=== PATIENT | male | born 1950 | race Two or more races ===

== ENCOUNTER 2019-11-20 09:45 | Emergency (ER) | payer MEDICARE, MEDICAID ==
[~2019-11-20] VITALS: Ht 172.7 cm; Wt 76.0 kg
[~2019-11-20 09:45] MED LIST: ASPI-611 PO; ATOR40TA72 PO
[2019-11-20 10:26] LABS: BASOPHILS % (AUTO) 0.6 % (0-1); EOSINOPHILS # (AUTO) 0.2 X10'3 (0-0.9); EOSINOPHILS % (AUTO) 2.7 % (0-6); HEMATOCRIT 35.9 % (42.0-52.0); HEMOGLOBIN 12.1 g/dl (14.0-17.9); LYMPHOCYTES # (AUTO) 1.3 X10'3 (1.1-4.8); MEAN CORPUSCULAR HEMOGLOBIN 29.5 PG (27.0-31.0); MEAN CORPUSCULAR HGB CONC 33.7 g/dL (33.0-36.5); MEAN CORPUSCULAR VOLUME 87.7 FL (78-98); MONOCYTES # (AUTO) 0.7 X10'3 (0-0.9); MONOCYTES % (AUTO) 10.6 % (2-12); NEUTROPHILS # (AUTO) 3.9 X10'3 (1.8-7.7); NEUTROPHILS % (AUTO) 64.1 % (42-75); PLATELET COUNT 230 X10'3 (140-440); RED BLOOD COUNT 4.09 X10'6 (4.70-6.10); RED CELL DISTRIBUTION WIDTH 14.7 % (11.5-14.5); WHITE BLOOD COUNT 6.1 X10'3 (4.5-11.0)
[2019-11-20 10:33] LABS: PARTIAL THROMBOPLASTIN TIME 29 SECONDS (22-32)
[2019-11-20 10:37] LABS: ALANINE AMINOTRANSFERASE 56 U/L (12-78); ALBUMIN 3.4 G/DL (3.4-5.0); ALBUMIN/GLOBULIN RATIO 0.7 (1.1-1.5); ALKALINE PHOSPHATASE 181 IU/L (46-116); ANION GAP 10 (8-16); ASPARTATE AMINO TRANSFERASE 33 U/L (10-37); BILIRUBIN,TOTAL 0.7 MG/DL (0.1-1.0); BLOOD UREA NITROGEN 21 MG/DL (7-18); BUN/CREATININE RATIO 17.5 (5.4-32.0); CALCIUM 9.7 MG/DL (8.5-10.1); CHLORIDE 101 MMOL/L (99-107); GLUCOSE 252 MG/DL (70-104); POTASSIUM 4.1 MMOL/L (3.5-5.1); SODIUM 135 MMOL/L (135-145); TOTAL CARBON DIOXIDE 24.2 MMOL/L (24-32); TOTAL PROTEIN 8.6 G/DL (6.4-8.2); eGFR 60 ML/MIN
[2019-11-20 10:54] LABS: MAGNESIUM 1.9 MG/DL (1.5-2.4)
[2019-11-20 11:23] VITALS: BP 124/80
== END 2019-11-20 11:26 | disposition home or self-care (01) ==
LOC: ER 09:45
DX: R22.1 Localized swelling, mass and lump, neck (principal); E11.9 Type 2 diabetes mellitus without complications; F17.200 Nicotine dependence, unspecified, uncomplicated; Z72.89 Other problems related to lifestyle; Z98.890 Other specified postprocedural states; Z86.73 Personal history of transient ischemic attack (TIA), and cerebral infarction without residual deficits; Z79.82 Long term (current) use of aspirin; Z79.899 Other long term (current) drug therapy
CPT/HCPCS: 36415; 71045; 80053; 83735; 83880; 84443; 85025; 85610; 85730; 87502; 87503; 93005; 99285

== ENCOUNTER 2020-06-26 11:05 | Outpatient (CLI) | payer MEDICARE, MEDICAID ==
[~2020-06-26 11:05] MED LIST changes: +ALLO300T8 PO; -ASPI-611 PO; +FERR325T28 PO; +MECO10005 PO; +METF500T PO; +METO-395 PO
== END 2020-06-26 23:59 | disposition home or self-care (01) ==
LOC: RAD 11:05
DX: C81.99 Hodgkin lymphoma, unspecified, extranodal and solid organ sites (principal); R55 Syncope and collapse
CPT/HCPCS: 95819

== ENCOUNTER 2022-01-06 08:28 | Day surgery (SDC) | payer MEDICAID, MEDICARE ==
[2021-12-30 10:28] LABS: BASOPHILS % (AUTO) 0.6 % (0-1); EOSINOPHILS # (AUTO) 0.1 X10'3 (0-0.9); HEMATOCRIT 36.1 % (42.0-52.0); HEMOGLOBIN 12.5 g/dl (14.0-17.9); LYMPHOCYTES % (AUTO) 37.7 % (21-51); MEAN CORPUSCULAR HEMOGLOBIN 33.9 PG (27.0-31.0); MEAN CORPUSCULAR HGB CONC 34.5 g/dL (33.0-36.5); MEAN CORPUSCULAR VOLUME 98.3 FL (78-98); MEAN PLATELET VOLUME 7.7 FL (7.4-10.4); MONOCYTES # (AUTO) 0.3 X10'3 (0-0.9); MONOCYTES % (AUTO) 6.1 % (2-12); NEUTROPHILS # (AUTO) 2.9 X10'3 (1.8-7.7); NEUTROPHILS % (AUTO) 53.6 % (42-75); PLATELET COUNT 186 X10'3 (140-440); RED BLOOD COUNT 3.68 X10'6 (4.70-6.10); RED CELL DISTRIBUTION WIDTH 13.3 % (11.5-14.5); WHITE BLOOD COUNT 5.3 X10'3 (4.5-11.0)
[2021-12-30 10:40] LABS: APTT 27 SECONDS (22-32)
[2021-12-30 11:02] LABS: ALANINE AMINOTRANSFERASE 26 U/L (12-78); ALBUMIN 3.9 G/DL (3.4-5.0); ALBUMIN/GLOBULIN RATIO 1.1 (1.1-1.5); ALKALINE PHOSPHATASE 120 IU/L (46-116); ANION GAP 12 (8-16); ASPARTATE AMINO TRANSFERASE 15 U/L (10-37); BILIRUBIN,TOTAL 0.5 MG/DL (0.1-1.0); BLOOD UREA NITROGEN 19 MG/DL (7-18); BUN/CREATININE RATIO 18.1 (5.4-32.0); CALCIUM 9.1 MG/DL (8.5-10.1); CHLORIDE 102 MMOL/L (99-107); CREATININE 1.05 MG/DL (0.60-1.10); GLUCOSE 158 MG/DL (70-104); POTASSIUM 4.3 MMOL/L (3.5-5.1); SODIUM 141 MMOL/L (135-145); TOTAL CARBON DIOXIDE 27.3 MMOL/L (24-32); TOTAL PROTEIN 7.3 G/DL (6.4-8.2); eGFR 70 ML/MIN
[2022-01-06] VITALS (12 sets, daily range): BP systolic 112–145; BP diastolic 68–90
[~2022-01-06] VITALS: Ht 172.7 cm; Wt 85.2 kg
[2022-01-06] MEDS ORDERED: nitroGLYCERIN 0.4mg SUBLingual tab SL PRN ×2 (08:40→13:05)
[2022-01-06] MEDS ORDERED: normal saline 1,000 ML IV SCH (08:45)
[2022-01-06] MEDS ORDERED: diphenhydrAMINE 25mg capsule PO PRN (08:45)
[2022-01-06] MEDS ORDERED: LORazepam 0.5 MG tablet PO PRN (08:45)
[2022-01-06] MEDS ORDERED: PREG50CA PO (08:50)
[2022-01-06] MEDS ORDERED: insulin Lispro (HumaLOG) vial - multi-dose SQ SCH (08:50)
[2022-01-06] MEDS ORDERED: MESSAGE TO PHARMACY PO ONE (08:50)
[2022-01-06] MEDS ORDERED: FINA5TAB11 PO (08:50)
[2022-01-06] MEDS ORDERED: dextrose 50%-water 50ml dispensing syringe IV PRN ×2 (08:50)
[2022-01-06] MEDS ORDERED: glucagon, human recombinant 1mg kit SUBCUT PRN (08:50)
[2022-01-06] MEDS ORDERED: METF-900 PO (08:50)
[2022-01-06] MEDS ORDERED: DEXTROSE 15 GM of carb/4 tabs (each vial/BOTTLE has 4 tablets) PO PRN ×2 (08:50)
[2022-01-06] MEDS ORDERED: LIDOCAINE 1% w/preservative (10 MG/ML) inj. 10mL VIAL ONE (11:34)
[2022-01-06] MEDS ORDERED: midazolam 1 mg/ML 2ml injection ONE ×2 (11:35→12:05)
[2022-01-06] MEDS ORDERED: fentaNYL/PF 50MCG/1 ML 2ML syringe ONE (11:35)
[2022-01-06] MEDS ORDERED: iohexol 350 MG/ML 50ML vial IV ONE (11:35)
[2022-01-06] MEDS ORDERED: iohexol 350MG/ML 100ml bottle IV ONE (11:35)
[2022-01-06] MEDS ORDERED: normal saline 1000ml 1,000 ML IV SCH (13:00)
[2022-01-06] MEDS ORDERED: ondansetron/PF 4mg/2ml inj IV PRN (13:00)
[2022-01-06] MEDS ORDERED: HYDROcodone/acetaminophen 10/325mg tab PO PRN (13:05)
[2022-01-06] MEDS ORDERED: proCHLORperazine 10 MG/2 ml inj IV PRN (13:05)
[2022-01-06] MEDS ORDERED: HYDROcodone/acetaminophen 5mg/325mg tablet PO PRN (13:05)
[2022-01-06] MEDS ORDERED: OXAZEpam 15mg capsule PO PRN (13:05)
[2022-01-06] MEDS ORDERED: insulin glargine (Lantus) pen - multi-dose SQ SCH (21:00)
== END 2022-01-06 19:35 | disposition home or self-care (01) ==
LOC: SSTAY O 08:28
PROVIDERS: ATTEND Internal Medicine Cardiovascular Disease
DX: R94.39 Abnormal result of other cardiovascular function study (principal); I25.10 Atherosclerotic heart disease of native coronary artery without angina pectoris; E11.40 Type 2 diabetes mellitus with diabetic neuropathy, unspecified; I65.21 Occlusion and stenosis of right carotid artery; N40.0 Benign prostatic hyperplasia without lower urinary tract symptoms; I25.2 Old myocardial infarction; Z98.890 Other specified postprocedural states; Z85.72 Personal history of non-Hodgkin lymphomas; Z79.84 Long term (current) use of oral hypoglycemic drugs; Z79.899 Other long term (current) drug therapy; Z87.891 Personal history of nicotine dependence; Z79.01 Long term (current) use of anticoagulants
CPT/HCPCS: 36415; 71046; 80053; 82948; 83036; 85025; 85610; 85730; 93005; 93458; 99152; 99153; C1760; C1769; J1644; J2250; J3010; J7030; Q0163; Q9967; A6258; J1815

== ENCOUNTER 2022-01-18 22:15 | Emergency (ER) | payer MEDICARE, MEDICAID ==
[~2022-01-18] VITALS: Ht 172.7 cm; Wt 83.6 kg
[~2022-01-18 22:15] MED LIST changes: -ALLO300T8 PO; -FERR325T28 PO; +FINA5TAB11 PO; -MECO10005 PO; +METF-900 PO; -METF500T PO; -METO-395 PO; +PREG50CA PO
[2022-01-18 22:53] LABS: BASOPHILS % (AUTO) 0.4 % (0-1); EOSINOPHILS # (AUTO) 0.1 X10'3 (0-0.9); EOSINOPHILS % (AUTO) 0.9 % (0-6); HEMATOCRIT 35.2 % (42.0-52.0); HEMOGLOBIN 12.3 g/dl (14.0-17.9); LYMPHOCYTES # (AUTO) 1.7 X10'3 (1.1-4.8); LYMPHOCYTES % (AUTO) 25.9 % (21-51); MEAN CORPUSCULAR HEMOGLOBIN 33.7 PG (27.0-31.0); MEAN CORPUSCULAR HGB CONC 34.9 g/dL (33.0-36.5); MEAN CORPUSCULAR VOLUME 96.6 FL (78-98); MEAN PLATELET VOLUME 7.8 FL (7.4-10.4); MONOCYTES # (AUTO) 0.4 X10'3 (0-0.9); MONOCYTES % (AUTO) 5.6 % (2-12); NEUTROPHILS # (AUTO) 4.4 X10'3 (1.8-7.7); NEUTROPHILS % (AUTO) 67.2 % (42-75); PLATELET COUNT 170 X10'3 (140-440); RED BLOOD COUNT 3.64 X10'6 (4.70-6.10); RED CELL DISTRIBUTION WIDTH 13.4 % (11.5-14.5); WHITE BLOOD COUNT 6.5 X10'3 (4.5-11.0)
[2022-01-18 23:07] LABS: ALANINE AMINOTRANSFERASE 24 U/L (12-78); ALBUMIN 4.1 G/DL (3.4-5.0); ALBUMIN/GLOBULIN RATIO 1.2 (1.1-1.5); ALKALINE PHOSPHATASE 110 IU/L (46-116); ANION GAP 6 (8-16); ASPARTATE AMINO TRANSFERASE 13 U/L (10-37); BILIRUBIN,TOTAL 0.4 MG/DL (0.1-1.0); BLOOD UREA NITROGEN 17 MG/DL (7-18); BUN/CREATININE RATIO 15.6 (5.4-32.0); CALCIUM 8.9 MG/DL (8.5-10.1); CHLORIDE 103 MMOL/L (99-107); CREATININE 1.09 MG/DL (0.60-1.10); GLUCOSE 286 MG/DL (70-104); POTASSIUM 3.7 MMOL/L (3.5-5.1); SODIUM 137 MMOL/L (135-145); TOTAL PROTEIN 7.5 G/DL (6.4-8.2); eGFR 67 ML/MIN
[2022-01-19 00:41] LABS: CLARITY,URINE CLEAR (Clear); GLUCOSE, URINE >=1000 mg/dl (Neg); KETONES,URINE NEGATIVE (Neg); LEUKOCYTE ESTERASE ,URINE NEGATIVE (Neg); NITRITES, URINE NEGATIVE (Neg); OCCULT BLOOD,URINE NEGATIVE (Neg); PH,URINE 7.5 (4.8-8.0); PROTEIN,URINE NEGATIVE (Neg); UROBILINOGEN,URINE 0.2 E.U/dL (0.2-1.0)
[2022-01-19 00:46] LABS: COLOR,URINE STRAW (Yellow); UA COLLECTION TYPE URINAL
[2022-01-19 00:55] LABS: BACTERIA,URINE NONE SEEN /HPF (Neg); RBC,URINE 0-2 /HPF (0-2); WBC,URINE 0-4 /HPF (0-4)
[2022-01-19 00:56] LABS: SQUAMOUS EPITHELIAL CELL,UR NONE SEEN /LPF (FEW)
[2022-01-19] MEDS ORDERED: insulin regular, human 10 units/0.1 ml syringe SQ ONE (01:15)
--- NOTE | 2022-01-19 01:31 | NUR ---
SPOKE TO DR SLAUGHTER PT'S BG IS 135. GIVEN VERBAL ORDER TO NOT GIVE INSULIN.
[2022-01-19 01:38] VITALS: BP 164/97
== END 2022-01-19 01:39 | disposition home or self-care (01) ==
LOC: ER 22:16
DX: E11.65 Type 2 diabetes mellitus with hyperglycemia (principal); E78.00 Pure hypercholesterolemia, unspecified; I11.9 Hypertensive heart disease without heart failure; Z79.899 Other long term (current) drug therapy
CPT/HCPCS: 36415; 71045; 80053; 81001; 82948; 83880; 84484; 85025; 93005; 99285

== ENCOUNTER 2022-05-07 20:55 | Emergency (ER) | payer MEDICARE, MEDICAID ==
[~2022-05-07] VITALS: Ht 172.7 cm; Wt 80.0 kg
[~2022-05-07 20:55] MED LIST changes: +ASPI-1071 PO; +HYDR-3972 PO; +LOP25T PO; +METF-436 PO; -METF-900 PO
[2022-05-07 21:08] VITALS: BP 168/87
[2022-05-07 21:31] LABS: BASOPHILS % (AUTO) 0.4 % (0-1); EOSINOPHILS # (AUTO) 0.1 X10'3 (0-0.9); EOSINOPHILS % (AUTO) 1.8 % (0-6); HEMATOCRIT 35.7 % (42.0-52.0); HEMOGLOBIN 12.3 g/dl (14.0-17.9); LYMPHOCYTES # (AUTO) 2.2 X10'3 (1.1-4.8); LYMPHOCYTES % (AUTO) 33.2 % (21-51); MEAN CORPUSCULAR HEMOGLOBIN 32.3 PG (27.0-31.0); MEAN CORPUSCULAR HGB CONC 34.6 g/dL (33.0-36.5); MEAN CORPUSCULAR VOLUME 93.5 FL (78-98); MEAN PLATELET VOLUME 7.8 FL (7.4-10.4); MONOCYTES # (AUTO) 0.4 X10'3 (0-0.9); MONOCYTES % (AUTO) 6.2 % (2-12); NEUTROPHILS # (AUTO) 3.8 X10'3 (1.8-7.7); NEUTROPHILS % (AUTO) 58.4 % (42-75); PLATELET COUNT 192 X10'3 (140-440); RED BLOOD COUNT 3.81 X10'6 (4.70-6.10); RED CELL DISTRIBUTION WIDTH 14.2 % (11.5-14.5); WHITE BLOOD COUNT 6.6 X10'3 (4.5-11.0)
[2022-05-07 21:50] LABS: ALANINE AMINOTRANSFERASE 24 U/L (12-78); ALBUMIN 4.4 G/DL (3.4-5.0); ALBUMIN/GLOBULIN RATIO 1.2 (1.1-1.5); ALKALINE PHOSPHATASE 91 IU/L (46-116); ANION GAP 12 (8-16); ASPARTATE AMINO TRANSFERASE 21 U/L (10-37); BILIRUBIN,TOTAL 0.4 MG/DL (0.1-1.0); BLOOD UREA NITROGEN 23 MG/DL (7-18); BUN/CREATININE RATIO 21.1 (5.4-32.0); CALCIUM 8.9 MG/DL (8.5-10.1); CHLORIDE 105 MMOL/L (99-107); CREATININE 1.09 MG/DL (0.60-1.10); GLUCOSE 187 MG/DL (70-104); POTASSIUM 4.3 MMOL/L (3.5-5.1); SODIUM 144 MMOL/L (135-145); TOTAL CARBON DIOXIDE 27.1 MMOL/L (24-32); eGFR 67 ML/MIN
== END 2022-05-08 06:15 | disposition left against medical advice (07) ==
LOC: ER 20:56
DX: R42 Dizziness and giddiness (principal); Z53.21 Procedure and treatment not carried out due to patient leaving prior to being seen by health care provider
CPT/HCPCS: 36415; 71045; 80053; 83880; 84484; 85025; 93005

== ENCOUNTER 2022-12-01 10:53 | Day surgery (SDC) | payer MEDICARE, MEDICAID ==
[~2022-12-01] VITALS: Ht 172.7 cm; Wt 86.0 kg
[2022-12-01 11:12] VITALS: BP 124/85
[2022-12-01 11:40] VITALS: BP 124/85
== END 2022-12-01 11:55 | disposition home or self-care (01) ==
LOC: SSTAY O 10:53
PROVIDERS: ATTEND Radiology Vascular & Interventional Radiology
DX: Z45.2 Encounter for adjustment and management of vascular access device (principal); C81.28 Mixed cellularity Hodgkin lymphoma, lymph nodes of multiple sites; E11.9 Type 2 diabetes mellitus without complications; Z86.73 Personal history of transient ischemic attack (TIA), and cerebral infarction without residual deficits; Z79.84 Long term (current) use of oral hypoglycemic drugs; Z79.899 Other long term (current) drug therapy; Z98.890 Other specified postprocedural states; Z95.1 Presence of aortocoronary bypass graft
CPT/HCPCS: 36590; J7030

== ENCOUNTER 2023-10-25 14:33 | Emergency (ER) | payer MEDICAID ==
[~2023-10-25] VITALS: Ht 175.3 cm; Wt 102.3 kg
[~2023-10-25 14:33] MED LIST changes: -ASPI-1071 PO; -FINA5TAB11 PO; -HYDR-3972 PO; -LOP25T PO; -PREG50CA PO
[2023-10-25 15:10] LABS: BASOPHILS % (AUTO) 0.5 % (0-1); EOSINOPHILS # (AUTO) 0.1 X10'3 (0-0.9); HEMATOCRIT 39.8 % (42.0-52.0); HEMOGLOBIN 13.7 g/dl (14.0-17.9); LYMPHOCYTES # (AUTO) 1.7 X10'3 (1.1-4.8); LYMPHOCYTES % (AUTO) 25.3 % (21-51); MEAN CORPUSCULAR HEMOGLOBIN 33.4 PG (27.0-31.0); MEAN CORPUSCULAR HGB CONC 34.4 g/dL (33.0-36.5); MEAN CORPUSCULAR VOLUME 97.2 FL (78-98); MEAN PLATELET VOLUME 8.4 FL (7.4-10.4); MONOCYTES # (AUTO) 0.3 X10'3 (0-0.9); MONOCYTES % (AUTO) 5.2 % (2-12); NEUTROPHILS # (AUTO) 4.4 X10'3 (1.8-7.7); PLATELET COUNT 182 X10'3 (140-440); RED CELL DISTRIBUTION WIDTH 13.4 % (11.5-14.5); WHITE BLOOD COUNT 6.5 X10'3 (4.5-11.0)
[2023-10-25 15:15] LABS: ALANINE AMINOTRANSFERASE 22 U/L (12-78); ALBUMIN 4.1 G/DL (3.4-5.0); ALBUMIN/GLOBULIN RATIO 1.1 (1.1-1.5); ALKALINE PHOSPHATASE 82 IU/L (46-116); ANION GAP 6 (8-16); ASPARTATE AMINO TRANSFERASE 25 U/L (10-37); BILIRUBIN,TOTAL 0.5 MG/DL (0.1-1.0); BLOOD UREA NITROGEN 20 MG/DL (7-18); BUN/CREATININE RATIO 16.9 (10.0-20.0); CALCIUM 8.8 MG/DL (8.5-10.1); CHLORIDE 102 MMOL/L (99-107); CREATININE 1.18 MG/DL (0.60-1.10); POTASSIUM 3.8 MMOL/L (3.5-5.1); SODIUM 140 MMOL/L (135-145); TOTAL CARBON DIOXIDE 31.6 MMOL/L (24-32); eGFR 61 ML/MIN
[2023-10-25 15:22] LABS: PRO BRAIN NATRIURETIC PEPTIDE 146 PG/ML (0-125)
[2023-10-25 15:25] LABS: GLUCOSE 160 MG/DL (70-104)
[2023-10-25 15:35] VITALS: TEMP 98
[2023-10-25 17:43] VITALS: BP 153/93; PULSE 73; RESP 16; O2SAT 100
== END 2023-10-25 20:25 | disposition left against medical advice (07) ==
LOC: ER 14:34
DX: R53.1 Weakness (principal); R51.9 Headache, unspecified; R42 Dizziness and giddiness; R06.02 Shortness of breath; Z53.21 Procedure and treatment not carried out due to patient leaving prior to being seen by health care provider
CPT/HCPCS: 36415; 80053; 83880; 84484; 85025; 93005; 99281; C1758